=== PATIENT | male | born 1940 | race Caucasian/White ===

== ENCOUNTER 2019-08-22 17:09 | Emergency (ER) | payer OTHER ==
[~2019-08-22] VITALS: Ht 170.2 cm; Wt 98.4 kg
[2019-08-22] MEDS ORDERED: ELIQUIS5 MG PO (17:23)
[2019-08-22] MEDS ORDERED: METFORMIN HCL500 MG PO (17:30)
[2019-08-22] MEDS ORDERED: LOSARTAN POTAS100 MG PO (17:39)
[2019-08-22] MEDS ORDERED: ZOCOR 10 MG TAB10 MG PO (17:39)
[2019-08-22] MEDS ORDERED: TYLENOL WITH CO1 TA1 PO (17:39)
[2019-08-22] MEDS ORDERED: PROTONIX40 M1 PO (17:42)
[2019-08-22] MEDS ORDERED: LEVO-T75 MCG PO (17:42)
[2019-08-22] MEDS ORDERED: CHLORTHALIDONE25 MG PO (17:42)
[2019-08-22] MEDS ORDERED: FAMOTIDINE40 MG PO (17:43)
[2019-08-22] MEDS ORDERED: GLUCOPHAGE XR750 MG PO (17:43)
[2019-08-22] MEDS ORDERED: LOPRESSOR100 M1 PO (17:43)
[2019-08-22] MEDS ORDERED: TRAZODONE 150150 M1 PO (17:43)
[2019-08-22 18:46] VITALS: BP 149/76
== END 2019-08-22 18:42 | disposition home or self-care (01) ==
LOC: ER 17:09
DX: S51.811A Laceration without foreign body of right forearm, initial encounter (principal); S81.811A Laceration without foreign body, right lower leg, initial encounter; M54.2 Cervicalgia; I10 Essential (primary) hypertension; M19.90 Unspecified osteoarthritis, unspecified site; I48.91 Unspecified atrial fibrillation; E11.9 Type 2 diabetes mellitus without complications; J44.9 Chronic obstructive pulmonary disease, unspecified; E07.89 Other specified disorders of thyroid; W18.39XA Other fall on same level, initial encounter; Y93.89 Activity, other specified; Y92.89 Other specified places as the place of occurrence of the external cause; Y99.8 Other external cause status